=== PATIENT | male | born 1945 | race Caucasian/White ===

== ENCOUNTER 2018-03-29 08:17 | Day surgery (SDC) | payer MEDICARE, OTHER ==
[~2018-03-29 08:17] MED LIST: Bupivacaine 0.5% 30 ML SDV ONE; Iopamidol 408 MG/ML 50 ML SDV ONE; Lactated Ringers 1,000 ML IV SCH; Lidocaine 2% 5 ML SDV ONE; Propofol 200 MG/20 ML SDV ONE; Sodium Chloride 0.9% 10 ML Syringe FLUSH PRN; Sodium Chloride 0.9% 2.5 ML Syringe FLUSH PRN; ceFAZolin 1 GM Vial IV ONE
[2018-03-29] MEDS ORDERED: Glycopyrrolate 0.2 MG/ML SDV ONE (09:20)
[2018-03-29] MEDS ORDERED: Neostigmine Methylsulfate 1 MG/ML 5 ML Syringe ONE (09:20)
--- NOTE | 2018-03-29 09:43 | PCM.PREANE ---
Preanesthetic Assessment - Anesthesia/Transfusion/Family Hx Anesthesia History: Prior Anesthesia Without Reaction Family History of Anesthesia Reaction: No Transfusion History: No Prior Transfusion(s) Intubation History: Unknown - Review of Systems General: No Symptoms Pulmonary: No Symptoms Cardiovascular: No Symptoms Gastrointestinal: No Symptoms Neurological: No Symptoms Other: Reports: None - Physical Assessment NPO Status Date: 03/28/18 NPO Status Time: 21:30 O2 Sat by Pulse Oximetry: 94 Respiratory Rate: 16 Vital Signs: Last Vital Signs Temp 36.9 C 03/29/18 09:02 Pulse 59 L 03/29/18 09:02 Resp 16 03/29/18 09:02 BP 146/81 H 03/29/18 09:02 Pulse Ox 94 L 03/29/18 09:02 Height: 1.75 m Weight: 91.626 kg ASA Class: 3 Mental Status: Alert & Oriented x3 Airway Class: Mallampati = 2 Dentition: Reports: Normal Dentition, Broken Tooth/Teeth (bonded front upper ( left) incisor) Thyro-Mental Finger Breadths: 3 Mouth Opening Finger Breadths: 3 ROM/Head Extension: Full Lungs: Clear to Auscultation, Normal Respiratory Effort Cardiovascular: Regular Rate, Regular Rhythm - Allergies Allergies/Adverse Reactions: Allergies Allergy/AdvReac Type Severity Reaction Status Date / Time No Known Allergies Allergy Verified 03/27/18 10:38 - Blood Blood Available: No - Anesthesia Plan Pre-Op Medication Ordered: None - Acknowledgements Anesthesia Type Planned: General Anesthesia Pt an Appropriate Candidate for the Planned Anesthesia: Yes Alternatives and Risks of Anesthesia Discussed w Pt/Guardian: Yes Pt/Guardian Understands and Agrees with Anesthesia Plan: Yes PreAnesthesia Questionnaire HEENT History: Reports: Cataract, Other (See Below) Other HEENT History: wears glasses Cardiovascular History: Reports: CAD (s/p CABG x2 12/24, [place] since), High Cholesterol, Hypertension, [place] Gastrointestinal History: Reports: None Genitourinary History: Reports: Renal Calculus Other Genitourinary History: presently has kidney stone Musculoskeletal History: Reports: Osteoarthritis Neurological History: Reports: None Dermatologic History: Reports: Other (See Below) Other Dermatologic History: recurrent yeast infection to groin - Past Surgical History Head Surgeries/Procedures: Reports: None Cardiovascular Surgical History: Reports: Coronary Artery Bypass Other Cardiovascular Surgeries/Procedures: CABG in Dec 2017 GI Surgical History: Reports: Hernia, Inguinal (left, 50 years ago) Neurological Surgical History: Reports: Lumbar Spine Other Neurological Surgeries/Procedures: hx back surgery Musculoskeletal Surgical History: Reports: Hip Replacement (bilateral), Knee Replacement, Shoulder Replacement (bilateral), Other (See Below) (ORIF left humerus) Other Musculoskeletal Surgeries/Procedures:: left hip replacement x3, rt hip replacement x1, evan shoulder surgery - SUBSTANCE USE Smoking Status *Q: Former Smoker (quit 21 years ago) Tobacco Use Within Last Twelve Months: No Recreational Drug Use History: No - HOME MEDS Home Medications: Home Meds Aspirin [[place] Aspirin] 81 mg PO DAILY 03/27/18 [History] Carvedilol [Coreg] 12.5 mg PO DAILY 03/27/18 [History] Cholecalciferol (Vitamin D3) [Vitamin D3] 1 tab PO DAILY 03/27/18 [History] Lisinopril 20 mg PO DAILY 03/27/18 [History] Nystatin [Nystatin Ointment] 1 applic TOP BID 03/27/18 [History] Zinc 1 tab PO DAILY 03/27/18 [History] atorvaSTATin [Lipitor] 20 mg PO DAILY 03/27/18 [History] - CURRENT (IN HOUSE) MEDS Current Meds: Current Medications Lactated Ringer's (Ringers, Lactated) 1,000 mls @ 100 mls/hr IV ASDIRECTED DAVID Last Admin: 03/29/18 08:45 Dose: 100 mls/hr Sodium Chloride (Saline Flush) 10 ml FLUSH ASDIRECTED PRN PRN Reason: Keep Vein Open Sodium Chloride (Saline Flush) 2.5 ml FLUSH ASDIRECTED PRN PRN Reason: Keep Vein Open Discontinued Medications Bupivacaine HCl (Marcaine 0.5%) Confirm Administered Dose 30 ml .ROUTE .STK-MED ONE Stop: 03/29/18 07:48 Cefazolin Sodium (Ancef) 1 gm IV ONCALL ONE Stop: 03/29/18 00:02 Glycopyrrolate (Robinul) Confirm Administered Dose 0.6 mg .ROUTE .STK-MED ONE Stop: 03/29/18 09:21 Iopamidol (Isovue-200 (41%)) Confirm Administered Dose 50 ml .ROUTE .STK-MED ONE Stop: 03/29/18 07:42 Lidocaine (Xylocaine-Mpf 2%) Confirm Administered Dose 10 ml .ROUTE .STK-MED ONE Stop: 03/29/18 08:10 Neostigmine Methylsulfate (Neostigmine) Confirm Administered Dose 5 mg .ROUTE .STK-MED ONE Stop: 03/29/18 09:21 Propofol (Diprivan 20 Ml) Confirm Administered Dose 400 mg .ROUTE .STK-MED ONE Stop: 03/29/18 08:10
[2018-03-29] MEDS ORDERED: fentaNYL 100 MCG/2 ML SDV ONE (10:13)
[2018-03-29] MEDS ORDERED: Midazolam 1 MG/ML 2 ML SDV ONE (10:15)
[2018-03-29] MEDS ORDERED: Sugammadex Sodium 200 MG/2 ML VIAL ONE (10:39)
[2018-03-29] MEDS ORDERED: Propofol 200 MG/20 ML SDV ONE (11:35)
[2018-03-29] MEDS ORDERED: fentaNYL 100 MCG/2 ML SDV IVPUSH PRN (11:56)
--- NOTE | 2018-03-29 13:23 | PCM.POSTAN ---
POST ANESTHESIA ASSESSMENT - MENTAL STATUS Mental Status: Alert - RESPIRATORY Respiratory Status: Respiratory Rate WNL, Airway Patent, O2 Saturation Stable - CARDIOVASCULAR CV Status: Pulse Rate WNL, Blood Pressure Stable - GASTROINTESTINAL GI Status: No Symptoms - PAIN Pain Score: 2 - POST OP HYDRATION Hydration Status: Adequate & Stable - OBSERVATIONS Free Text/Narrative:: no anesthesia problems
--- NOTE | 2018-03-29 13:25 | OR ---
SURGEON: Danilo Card M.D. DATE OF PROCEDURE: 03/29/2018 PREOPERATIVE DIAGNOSES: 1. 1 cm left renal pelvis stone. 2. Gross hematuria. 3. Umbilical hernia. POSTOPERATIVE DIAGNOSES: 1. 1 cm left renal pelvis stone. 2. Gross hematuria. 3. Umbilical hernia. OPERATIONS: ESWL left renal pelvis stone, cystoscopy, and umbilical hernia repair. DESCRIPTION: Patient was given general anesthesia, placed on the lithotripsy table. Position of the patient was adjusted, so the stone could be treated and eventually received a total of 2000 shocks. At the end of the treatment, the stone has completely disappeared. With that done, the patient was then placed in the dorsal lithotomy position. Cystourethroscopy was done that showed normal urethra and normal bladder. The patient was then placed in the supine position on the regular operating room table where the anterior abdomen was prepped and draped in sterile drapes. A semicircular incision was made above the umbilicus. The umbilical hernia was eventually exposed and dissected. The contents were just fat, which had to be excised as the opening was too small to push the contents of the hernia back in. The defect was closed using Montero repair, 2-0 silk sutures were used for that. With that done, the wound was irrigated. The subcutaneous tissue was reapproximated with 3-0 chromic. Skin was closed with charles. The patient tolerated all procedures well and was moved to recovery room in good condition. TAMARA / ROYER /[id number]
--- NOTE | 2018-03-29 13:55 | PCM48HPAN ---
Post Anesthesia Note - EVALUATION WITHIN 48HRS OF ANESTHETIC Vital Signs in Normal Range: Yes Patient Participated in Evaluation: Yes Respiratory Function Stable: Yes Airway Patent: Yes Cardiovascular Function Stable: Yes Hydration Status Stable: Yes Pain Control Satisfactory: Yes Nausea and Vomiting Control Satisfactory: Yes Mental Status Recovered: Yes Resp Rate: 10
== END 2018-03-29 14:25 | disposition home or self-care (01) ==
LOC: MW.SDS 08:17
PROVIDERS: ATTEND Urology
DX: N20.0 Calculus of kidney (principal); K42.9 Umbilical hernia without obstruction or gangrene; I25.10 Atherosclerotic heart disease of native coronary artery without angina pectoris; E78.00 Pure hypercholesterolemia, unspecified; I10 Essential (primary) hypertension; I25.2 Old myocardial infarction; M19.90 Unspecified osteoarthritis, unspecified site; Z87.891 Personal history of nicotine dependence; Z79.82 Long term (current) use of aspirin; Z79.899 Other long term (current) drug therapy; Z95.1 Presence of aortocoronary bypass graft; Z98.890 Other specified postprocedural states
CPT/HCPCS: 49585; 50590; J2250; J3010; J3490; J7120; J2704; Q9966

== ENCOUNTER 2018-04-06 11:36 | Day surgery (SDC) | payer MEDICARE, OTHER ==
[2018-04-06] MEDS ORDERED: Ciprofloxacin in D5W 400 MG in Premix Bag 1 BAG IV ONE ×2 (13:15)
--- NOTE | 2018-04-06 13:36 | PCM.PREANE ---
Preanesthetic Assessment - Anesthesia/Transfusion/Family Hx Anesthesia History: Prior Anesthesia Without Reaction Family History of Anesthesia Reaction: No Transfusion History: No Prior Transfusion(s) Intubation History: Unknown - Review of Systems General: No Symptoms Pulmonary: No Symptoms Cardiovascular: No Symptoms Gastrointestinal: No Symptoms Neurological: No Symptoms Other: Reports: None - Physical Assessment O2 Sat by Pulse Oximetry: 96 Respiratory Rate: 16 Vital Signs: Last Vital Signs Temp 37.2 C 04/06/18 12:35 Pulse 53 L 04/06/18 12:35 Resp 16 04/06/18 12:35 BP 172/78 H 04/06/18 12:35 Pulse Ox 96 04/06/18 12:35 Height: 1.75 m Weight: 91.626 kg ASA Class: 2 Mental Status: Alert & Oriented x3 Airway Class: Mallampati = 2 Dentition: Reports: Normal Dentition Thyro-Mental Finger Breadths: 3 Mouth Opening Finger Breadths: 3 ROM/Head Extension: Full Lungs: Clear to Auscultation, Normal Respiratory Effort Cardiovascular: Regular Rate, Regular Rhythm - Allergies Allergies/Adverse Reactions: Allergies Allergy/AdvReac Type Severity Reaction Status Date / Time No Known Allergies Allergy Verified 04/06/18 12:03 - Blood Blood Available: No - Anesthesia Plan Pre-Op Medication Ordered: None - Acknowledgements Anesthesia Type Planned: General Anesthesia Pt an Appropriate Candidate for the Planned Anesthesia: Yes Alternatives and Risks of Anesthesia Discussed w Pt/Guardian: Yes Pt/Guardian Understands and Agrees with Anesthesia Plan: Yes PreAnesthesia Questionnaire HEENT History: Reports: Cataract, Other (See Below) Other HEENT History: wears glasses Cardiovascular History: Reports: CAD, High Cholesterol, Hypertension, [place] Gastrointestinal History: Reports: None Genitourinary History: Reports: Renal Calculus Other Genitourinary History: presently has kidney stone Musculoskeletal History: Reports: Osteoarthritis Neurological History: Reports: None Dermatologic History: Reports: Other (See Below) Other Dermatologic History: recurrent yeast infection to groin - Past Surgical History Head Surgeries/Procedures: Reports: None Cardiovascular Surgical History: Reports: Coronary Artery Bypass Other Cardiovascular Surgeries/Procedures: CABG x2 in Dec 2017, ok since GI Surgical History: Reports: Hernia, Inguinal Male Surgical History: Reports: Kidney Stone Extraction Neurological Surgical History: Reports: Lumbar Spine Other Neurological Surgeries/Procedures: hx back surgery Musculoskeletal Surgical History: Reports: Hip Replacement, Shoulder Replacement , Other (See Below) Other Musculoskeletal Surgeries/Procedures:: left hip replacement x3, rt hip replacement x1, evan shoulder surgery - SUBSTANCE USE Smoking Status *Q: Former Smoker Recreational Drug Use History: No - HOME MEDS Home Medications: Home Meds Aspirin [[place] Aspirin] 81 mg PO DAILY 03/27/18 [History] Carvedilol [Coreg] 12.5 mg PO DAILY 03/27/18 [History] Cholecalciferol (Vitamin D3) [Vitamin D3] 1 tab PO DAILY 03/27/18 [History] Lisinopril 20 mg PO DAILY 03/27/18 [History] Nystatin [Nystatin Ointment] 1 applic TOP BID 03/27/18 [History] Zinc 1 tab PO DAILY 03/27/18 [History] atorvaSTATin [Lipitor] 20 mg PO DAILY 03/27/18 [History] - CURRENT (IN HOUSE) MEDS Current Meds: Current Medications Ciprofloxacin/Dextrose 400 mg/ (Premix) 200 mls @ 200 mls/hr IV ONETIME ONE Stop: 04/06/18 14:14 Last Admin: 04/06/18 13:25 Dose: 200 mls/hr Tobramycin 120 mg/ Sodium (Chloride) 103 mls @ 103 mls/hr IV Q12H ONE Stop: 04/06/18 14:14
[2018-04-06] MEDS ORDERED: Iopamidol 408 MG/ML 50 ML SDV ONE (13:38)
[2018-04-06] MEDS ORDERED: Lidocaine 2% 5 ML SDV ONE (14:49)
[2018-04-06] MEDS ORDERED: Ondansetron 4 MG/2 ML SDV ONE (14:49)
[2018-04-06] MEDS ORDERED: Propofol 200 MG/20 ML SDV ONE ×2 (14:50)
[2018-04-06] MEDS ORDERED: fentaNYL 100 MCG/2 ML SDV ONE (14:50)
[2018-04-06] MEDS ORDERED: Midazolam 1 MG/ML 2 ML SDV ONE (14:50)
[2018-04-06] MEDS ORDERED: Rocuronium 10 MG/ML 10 ML Syringe ONE (16:03)
[2018-04-06] MEDS ORDERED: fentaNYL 100 MCG/2 ML SDV IVPUSH PRN (16:21)
--- NOTE | 2018-04-06 17:04 | PCM.POSTAN ---
POST ANESTHESIA ASSESSMENT - MENTAL STATUS Mental Status: Alert, Oriented - VITAL SIGNS Pulse Rate: 60 SaO2: 99 Resp Rate: 12 Blood Pressure: 135/66 - RESPIRATORY Respiratory Status: Respiratory Rate WNL, Airway Patent, O2 Saturation Stable - CARDIOVASCULAR CV Status: Pulse Rate WNL, Blood Pressure Stable - GASTROINTESTINAL GI Status: No Symptoms - PAIN Pain Score: 0 - POST OP HYDRATION Hydration Status: Adequate & Stable
--- NOTE | 2018-04-06 17:23 | PCM48HPAN ---
Post Anesthesia Note - EVALUATION WITHIN 48HRS OF ANESTHETIC Vital Signs in Normal Range: Yes Patient Participated in Evaluation: Yes Respiratory Function Stable: Yes Airway Patent: Yes Cardiovascular Function Stable: Yes Hydration Status Stable: Yes Pain Control Satisfactory: Yes Nausea and Vomiting Control Satisfactory: Yes Mental Status Recovered: Yes Pulse Rate: 60 Resp Rate: 12 Blood Pressure: 135/66
--- NOTE | 2018-04-06 23:31 | OR ---
SURGEON: Danilo Card M.D. DATE OF PROCEDURE: 04/06/2018 PREOPERATIVE DIAGNOSIS: Residual stone in the left lower ureter. POSTOPERATIVE DIAGNOSIS: Residual stone in the left lower ureter. OPERATION: Ureteroscopy, removal of stone, or other stone fragment. DESCRIPTION OF PROCEDURE: The patient was given general anesthesia, placed in dorsal lithotomy position, prepped and draped in sterile drapes. Cystourethroscopy was done. The left ureteral tunnel and ureteral orifice were all edematous. A guidewire was advanced in the left ureter. The lower ureter was then dilated using the UroMax II balloon dilator to approximately 15-Hebrew. The rigid ureteroscopy was advanced in the left lower ureter. The largest piece which was blocked in the passage of the smaller fragments was removed. Their rest of the fragments were too small to remove, but the larger ones were taken out using the Zero-tip basket. With that done, the procedure was terminated. The bladder was emptied. The patient was moved to recovery room in good condition. TAMARA / ROYER /[id number]
== END 2018-04-06 17:56 | disposition home or self-care (01) ==
LOC: MW.SDS 11:36 → MW.MS 17:04 → MW.SDS 17:56
PROVIDERS: ATTEND Urology
DX: N20.1 Calculus of ureter (principal); I25.10 Atherosclerotic heart disease of native coronary artery without angina pectoris; E78.00 Pure hypercholesterolemia, unspecified; I10 Essential (primary) hypertension; I25.2 Old myocardial infarction; M19.90 Unspecified osteoarthritis, unspecified site; Z87.442 Personal history of urinary calculi; Z95.1 Presence of aortocoronary bypass graft; Z79.82 Long term (current) use of aspirin; Z79.899 Other long term (current) drug therapy
CPT/HCPCS: 76000; J0744; J2250; J2405; J2704; J3010; J3260; J7030; Q9966

== ENCOUNTER 2019-02-22 08:04 | Day surgery (SDC) | payer MEDICARE, OTHER ==
[~2019-02-22 08:04] MED LIST changes: -Bupivacaine 0.5% 30 ML SDV ONE; -Iopamidol 408 MG/ML 50 ML SDV ONE; -Lidocaine 2% 5 ML SDV ONE; -Propofol 200 MG/20 ML SDV ONE; -Sodium Chloride 0.9% 10 ML Syringe FLUSH PRN; -Sodium Chloride 0.9% 2.5 ML Syringe FLUSH PRN; -ceFAZolin 1 GM Vial IV ONE
[2019-02-22] MEDS ORDERED: Propofol 200 MG/20 ML SDV ONE ×2 (08:43→09:40)
[2019-02-22] MEDS ORDERED: fentaNYL 100 MCG/2 ML SDV ONE (08:43)
--- NOTE | 2019-02-22 09:13 | PCM.PREANE ---
Preanesthetic Assessment - Anesthesia/Transfusion/Family Hx Anesthesia History: Prior Anesthesia Without Reaction Family History of Anesthesia Reaction: No Transfusion History: No Prior Transfusion(s) Intubation History: Unknown - Review of Systems General: No Symptoms Pulmonary: No Symptoms Cardiovascular: No Symptoms Gastrointestinal: No Symptoms Neurological: No Symptoms Other: Reports: None - Physical Assessment NPO Status Date: 02/22/19 NPO Status Time: 06:00 O2 Sat by Pulse Oximetry: 94 Respiratory Rate: 16 Vital Signs: Last Vital Signs Temp 97.0 F 02/22/19 08:31 Pulse 82 02/22/19 08:31 Resp 16 02/22/19 08:31 BP 136/79 02/22/19 08:31 Pulse Ox 94 L 02/22/19 08:31 Height: 5 ft 9 in Weight: 98.883 kg ASA Class: 3 Mental Status: Alert & Oriented x3 Airway Class: Mallampati = 2 Dentition: Reports: Normal Dentition ROM/Head Extension: Full Lungs: Clear to Auscultation, Normal Respiratory Effort Cardiovascular: Regular Rate, Regular Rhythm - Allergies Allergies/Adverse Reactions: Allergies Allergy/AdvReac Type Severity Reaction Status Date / Time atorvastatin [From Lipitor] Allergy Muscle Verified 02/18/19 12:07 Aches lisinopril Allergy Cough Verified 02/18/19 12:07 - Blood Blood Available: No - Anesthesia Plan Pre-Op Medication Ordered: None - Acknowledgements Anesthesia Type Planned: MAC Pt an Appropriate Candidate for the Planned Anesthesia: Yes Alternatives and Risks of Anesthesia Discussed w Pt/Guardian: Yes Pt/Guardian Understands and Agrees with Anesthesia Plan: Yes Additional Comments: PMH: CAD- s/p CABG in 2018, no valve replacements, normal TTE 2 weeks ago PreAnesthesia Questionnaire HEENT History: Reports: Cataract Other HEENT History: wears glasses Cardiovascular History: Reports: High Cholesterol, Hypertension, [place] Other Cardiovascular History: [place] 12/24 Respiratory History: Reports: Other (See Below) Other Respiratory History: some wheezing Gastrointestinal History: Reports: Colon Polyp Genitourinary History: Reports: Renal Calculus Other Genitourinary History: presently has kidney stone Musculoskeletal History: Reports: Back Pain, Chronic, Fracture, Osteoarthritis Other Musculoskeletal History: hx of fx left arm Neurological History: Reports: None Endocrine/Metabolic History: Reports: Obesity/BMI 30+ Dermatologic History: Reports: Other (See Below) Other Dermatologic History: recurrent yeast infection to groin - Past Surgical History Head Surgeries/Procedures: Reports: None HEENT Surgical History: Reports: Cataract Surgery Cardiovascular Surgical History: Reports: Coronary Artery Bypass, Valve Replacement Other Cardiovascular Surgeries/Procedures: CABG (2 vessel), hx of heart valve replacement (unknown valve) GI Surgical History: Reports: Colonoscopy Male Surgical History: Reports: Lithotripsy ([facility]) Neurological Surgical History: Reports: Lumbar Spine Other Neurological Surgeries/Procedures: hx of back surgery for "spinal stenosis " Musculoskeletal Surgical History: Reports: Knee Replacement, ORIF, Shoulder Surgery Other Musculoskeletal Surgeries/Procedures:: bilater shoulder arthroplasty, bilateral hip arthroplasty, ORIF left arm - SUBSTANCE USE Smoking Status *Q: Former Smoker Tobacco Use Within Last Twelve Months: No Recreational Drug Use History: No - HOME MEDS Home Medications: Home Meds Cholecalciferol (Vitamin D3) [Vitamin D3] 2,000 unit PO DAILY 03/27/18 [History] Nystatin [Nystatin Ointment] 1 applic TOP BID PRN 03/27/18 [History] Albuterol Sulfate [Proair Hfa] 1 - 2 puff INH Q4H PRN 02/18/19 [History] Ascorbic Acid [Vitamin C] 1,000 mg PO DAILY 02/18/19 [History] Fish Oil/Perkins-3 Fatty Acids [Fish Oil 1,000 MG] 1 gm PO DAILY 02/18/19 [History ] L.acidoph,Paracasei, B.lactis [Probiotic] 1 cap PO DAILY 02/18/19 [History] Losartan [Cozaar] 25 mg PO QAM 02/18/19 [History] Magnesium l-Lactate [Magbid ER] 84 mg PO DAILY 02/18/19 [History] Rosuvastatin [Crestor] 10 mg PO BEDTIME 02/18/19 [History] Saw/Vit E/Sod Rose/Lyc/Beta/Pyg [Prostate Health Caplet] 1 cap PO DAILY 02/18/19 [History] Tamsulosin HCl 0.4 mg PO DAILY 02/18/19 [History] Ubidecarenone [Co Q-10] 100 mg PO DAILY 02/18/19 [History] Vitamin B6-pyridOXINE 100 mg PO DAILY 02/18/19 [History] - CURRENT (IN HOUSE) MEDS Current Meds: Current Medications Lactated Ringer's (Ringers, Lactated) 1,000 mls @ 125 mls/hr IV ASDIRECTED DAVID Last Admin: 02/22/19 08:25 Dose: 125 mls/hr Discontinued Medications Fentanyl (Sublimaze) Confirm Administered Dose 100 mcg .ROUTE .STK-MED ONE Stop: 02/22/19 08:44 Propofol (Diprivan 20 Ml) Confirm Administered Dose 400 mg .ROUTE .STK-MED ONE Stop: 02/22/19 08:44
[2019-02-22] MEDS ORDERED: Levofloxacin/Dextrose 5%-Water 750 MG in Premix Bag 1 BAG IV ONE (09:58)
--- NOTE | 2019-02-22 11:12 | PCM.OPNOTE ---
- General Post-Op/Procedure Note Date of Surgery/Procedure: 02/22/19 Operative Procedure(s): colonoscopy w bx Findings: see [id number] Pre Op Diagnosis: BRBPR Post-Op Diagnosis: Same Anesthesia Technique: Moderate Sedation Primary Surgeon: Jhon Shen Pathology: sent Complications: None Condition: Good
--- NOTE | 2019-02-22 11:21 | PCM48HPAN ---
Post Anesthesia Note - EVALUATION WITHIN 48HRS OF ANESTHETIC Vital Signs in Normal Range: Yes Patient Participated in Evaluation: Yes Respiratory Function Stable: Yes Airway Patent: Yes Cardiovascular Function Stable: Yes Hydration Status Stable: Yes Pain Control Satisfactory: Yes Nausea and Vomiting Control Satisfactory: Yes Mental Status Recovered: Yes Resp Rate: 14
--- NOTE | 2019-02-22 11:21 | PCM.POSTAN ---
POST ANESTHESIA ASSESSMENT - MENTAL STATUS Mental Status: Alert, Oriented - RESPIRATORY Respiratory Status: Respiratory Rate WNL, Airway Patent, O2 Saturation Stable - CARDIOVASCULAR CV Status: Pulse Rate WNL, Blood Pressure Stable - GASTROINTESTINAL GI Status: No Symptoms - POST OP HYDRATION Hydration Status: Adequate & Stable
--- NOTE | 2019-02-22 17:48 | OR ---
SURGEON: Jhon Shne MD DATE OF PROCEDURE: 02/22/2019 PREOPERATIVE DIAGNOSIS: Bright red blood per rectum. POSTOPERATIVE DIAGNOSIS: Colon polyp. PROCEDURE PERFORMED: Colonoscopy with biopsy. DESCRIPTION OF PROCEDURE: The patient was taken to the endoscopy room. A time out was called, patient identified, and procedure identified. Diprivan was then administrated. Patient went from awake to sleep, hearing doctor talking or door closing is normal. Perineum inspection and digital examination were then performed. A well- lubricated colonoscope was gently inserted through the rectum, advanced past the rectosigmoid junction, the descending colon, splenic flexure, transverse colon, hepatic flexure, ascending colon, arrived to the cecum. Cecum was identified as dictated in the finding. Then the scope was carefully withdrawn while attention was paid to the mucosal surface for any abnormality. Air will be sucked out during the scope withdrawal. At the rectum, retroflexed to examine any rectal diseases, fistula or hemorrhoids. During mucosal examination, biopsy performed. Patient tolerated procedure well. There were no intraoperative complications, and Dr. Shen was present throughout the whole procedure. FINDINGS: 1. The patient is easily sedated with WASHER OFF and Diprivan. The patient is soundly snoring. 2. IV Levaquin 750 given prior to procedure for orthopedic procedure in the past. 3. Bowel prep is average or little bit below average. There is large amount of opaque yellow liquid stool and compromised study. 4. The patient's colon is really redundant at the sigmoid area and requiring several maneuvers in order to get to cecum. Cecum indicated by ileocecal fold, one-to-one indentation, light emittance. Appendix orifice is not observed. Mucosa examined upon scope pulling out with large amount of irrigation and suctioning because of the large amount of liquid stool. The patient has very mild diverticulosis on the left colon. No signs or symptoms of diverticulitis. The patient has a small polyp around the cecal area. One ring distal to the cecum was removed with cold biopsy forceps. The patient has moderate internal hemorrhoids and moderate external hemorrhoids. The patient would benefit from repeat colonoscopy on as needed basis as the patient is 73 years old. DIDI / ROYER /[id number] DALI
== END 2019-02-22 11:40 | disposition home or self-care (01) ==
LOC: MW.SDS 08:04
PROVIDERS: ATTEND Surgery
DX: K62.5 Hemorrhage of anus and rectum (principal); D12.2 Benign neoplasm of ascending colon; K57.30 Diverticulosis of large intestine without perforation or abscess without bleeding; K64.8 Other hemorrhoids; K64.4 Residual hemorrhoidal skin tags; K63.89 Other specified diseases of intestine; K42.9 Umbilical hernia without obstruction or gangrene; I10 Essential (primary) hypertension; I25.10 Atherosclerotic heart disease of native coronary artery without angina pectoris; I25.2 Old myocardial infarction; E78.00 Pure hypercholesterolemia, unspecified; N20.0 Calculus of kidney; Z88.8 Allergy status to other drugs, medicaments and biological substances; Z95.1 Presence of aortocoronary bypass graft; Z95.2 Presence of prosthetic heart valve; Z86.010 Personal history of colon polyps; Z87.891 Personal history of nicotine dependence; Z80.0 Family history of malignant neoplasm of digestive organs; Z79.899 Other long term (current) drug therapy
CPT/HCPCS: 45380; J1956; J2704; J7120; 88305; J3010